=== PATIENT | male | born 1985 | race Caucasian/White ===

== ENCOUNTER 2024-12-03 13:05 | Emergency (ER) | payer SELFPAY ==
[2024-12-03 13:09] VITALS: BP 134/90; PULSE 107; RESP 16; TEMP 36.4; O2SAT 98
[2024-12-03 13:13] VITALS: BP 134/90; PULSE 107; RESP 16; TEMP 36.4; O2SAT 98
--- NOTE | 2024-12-03 13:15 | DI.RAD_ITS ---
Exam(s) XR CHEST 2V PA LATERAL EXAM: XR CHEST 2V PA LATERAL CLINICAL HISTORY: shortness of breath, left sided pain, cough TECHNIQUE: 2D digital imaging was performed. Two views. COMPARISON: No exams were available for comparison FINDINGS: HEART: Normal size. Aorta: Not dilated. PULMONARY VASCULATURE: Normal. MEDIASTINUM: Unremarkable. LUNGS: Clear. PLEURAL SPACE: No pleural effusion or pneumothorax. BONE:Unremarkable for age. SOFT TISSUES: Unremarkable. IMPRESSION: No acute abnormality. DATA REPOSITORY: RADIATION DOSE DELIVERED:
[2024-12-03] MEDS: Ondansetron O.D.T. 4 MG TABEF PO (14:41)
[2024-12-03] MEDS: Albuterol HFA 8 GM 60 PUFF INH IH (14:42)
[2024-12-03] MEDS: predniSONE 20 MG TAB 40 MG PO (14:42)
[2024-12-03 14:43] VITALS: BP 122/78; PULSE 90; RESP 16; O2SAT 96
--- NOTE | 2024-12-03 15:35 | W.ED.GENAD ---
Discharge Plan Disposition Patient Disposition: Home Condition: Stable Discharge Details Clinical Impression: Bronchitis Primary Care Provider: Sofiya,Local ED Provider: Dana Starks Home Meds and New Rx's Prescriptions: New prednisone 20 mg tablet 40 mg PO ONCE Qty: 10 0RF ondansetron 4 mg tablet,disintegrating 4 mg PO TID PRN3 Days Qty: 10 0RF Continued albuterol sulfate [ProAir HFA] 2 puff inhalation DIRECTED fluticasone propionate [Flovent Diskus] 1 inh inhalation DIRECTED metoprolol tartrate 1 tab PO DAILY Discharge Instructions Instructions: Bronchitis, Adult ED Additional Instructions: Increased fluids, take Zofran 4 mg every 8 hours as needed for nausea and vomiting, take prednisone as prescribed till completed you received your first dose of prednisone today Mucinex will help with the mucus Eight 8 ounce glasses of water daily Inhaler 2 puffs every 4-6 hours as needed for cough, wheeze, shortness of breath Discharge Data Discharge Date/Time-TO BE ENTERED AT DEPARTURE: 12/03/24 14:44 HPI General Date/Time Provider Initiated Documentation: 12/03/24 13:19. HPI Narrative: THis 39 yo male presents with report of cough, increased mucus production, shortness of breath. Denies any fever or chills. History of tobacco use. Currently resides in his motor vehicle. History of COPD. Related Data Home Medications ?Medication ?Instructions ?Recorded ?Confirmed albuterol sulfate 2 puff inhalation DIRECTED 12/03/24 12/03/24 fluticasone propionate 1 inh inhalation DIRECTED 12/03/24 12/03/24 metoprolol tartrate 1 tab PO DAILY 12/03/24 12/03/24 ondansetron 4 mg disintegrating 4 mg PO TID PRN 3 days #10 tabs 12/03/24 tablet prednisone 20 mg tablet 40 mg (2 x 20 mg) PO ONCE #10 tabs 12/03/24 Previous Rx's ?Medication ?Instructions ?Recorded ondansetron 4 mg disintegrating 4 mg PO TID PRN 3 days #10 tabs 12/03/24 tablet prednisone 20 mg tablet 40 mg (2 x 20 mg) PO ONCE #10 tabs 12/03/24 Allergies Allergy/AdvReac Type Severity Reaction Status Date / Time Penicillins Allergy Intermediate Hives Verified 12/03/24 13:49 General Stated Complaint: RespSymp MIAH: 4 Exam Narrative Exam Narrative: Alert, oriented 39-year-old male in no acute distress lungs clear to auscultation speaking complete sentences cardiac rate rhythm regular no peripheral edema. Course Vital Signs Vital signs: Vital Signs Temperature 36.4 C L 12/03/24 13:09 Pulse 107 H 12/03/24 13:09 Respiratory Rate 16 12/03/24 13:09 Blood Pressure 134/90 12/03/24 13:09 Pulse Oximetry 98 12/03/24 13:09 Temperature 36.4 C L 12/03/24 13:13 Pulse 90 12/03/24 14:43 Respiratory Rate 16 12/03/24 14:43 Respiratory Effort Non-Labored 12/03/24 13:49 Blood Pressure 122/78 12/03/24 14:43 Pulse Oximetry 96 12/03/24 14:43 Pain Level 0 12/03/24 13:13 Medical Decision Making Results: Chest x-ray per radiology interpretation my review does not show evidence of acute abnormality Assessment and plan: Will place patient on steroids, will use a butyryl 2 puffs every 4-6 hours seen for cough, wheeze, shortness of breath, suspect patient has bronchitis no evidence of bacterial source based on my assessment. Encourage herbal tea and Mucinex with hydration. Recheck in 2 to 3 days if persistent symptoms return earlier with new or worsening complaints PFSH All Active Problems (Updated 12/03/24 @ 14:30 by FELIPE Carrasquillo) Bronchitis (Acute) Social History Smoking risk assessment performed?: No Do you feel safe at home: Yes Do you feel safe in your relationship?: Yes
== END 2024-12-03 14:44 | disposition home or self-care (01) ==
PROVIDERS: Emergency Provider Physician Assistant
DX: J40 Bronchitis, not specified as acute or chronic (principal)
CPT/HCPCS: 99283 ×2; 71046; J7512